=== PATIENT | female | born 1975 | race Asian ===

== ENCOUNTER 2022-02-21 16:30 | Inpatient (IN) | payer BC ==
[~2022-02-21] VITALS: Ht 160 cm; Wt 61.7 kg
[2022-02-21 17:13] LABS: EOSINOPHILS % 1.2 % (0.0-5.0); HEMATOCRIT. 39.3 % (36.0-48.0); HEMOGLOBIN. 12.3 g/dL (12.0-16.0); LYMPHOCYTES % 23.7 % (20.0-50.0); MEAN CORPUSCULAR HEMOGLOBIN 22.9 pg (28.0-32.0); MEAN CORPUSCULAR VOLUME 73.2 fL (81.0-99.0); MEAN PLATELET VOLUME 7.8 fl (7.4-10.4); MONOCYTES % 5.4 % (2.0-8.0); NEUTROPHILS % 68.7 % (40.0-76.0); PLATELET 372 x1000/uL (130-400); RED BLOOD CELL COUNT 5.37 mill/uL (4.2-5.4); RED CELL DISTRIBUTION WIDTH 17.9 % (11.6-14.6)
[2022-02-21 17:19] LABS: CHLORIDE 103 mEq/L (98-107)
[2022-02-21 17:43] LABS: HCG SCREEN NEGATIVE
[2022-02-21 18:03] LABS: INR 0.9; PARTIAL THROMBOPLASTIN TIME 25.1 sec (23.4-31.0); PROTHROMBIN TIME 9.9 sec (9.6-11.0)
[2022-02-21] MEDS ORDERED: HEPARIN 25,000 UNITS PREMIX 250 ML IV ONE (18:45)
[2022-02-21] MEDS ORDERED: HEPARIN 80 UNITS/KG BOLUS IV NR (19:00)
[2022-02-21] MEDS ORDERED: HEPARIN 25,000 UNITS PREMIX 250 ML IV SCH ×2 (19:00→20:15)
[2022-02-21] MEDS ORDERED: ACETAMINOPHEN 325MG TABLET PO PRN ×2 (20:00)
[2022-02-21] MEDS ORDERED: SODIUM CHLORIDE 0.9% 1,000 ML IV SCH (20:00)
[2022-02-21] MEDS ORDERED: MORPHINE SULFATE 2 MG/ML CPJ (NOT FOR IM USE) IV PRN (20:00)
[2022-02-21] MEDS ORDERED: MAGNESIUM/ALUMINUM HYDROXIDE/SIMETHICONE 30ML UDC PO PRN (20:00)
[2022-02-21] MEDS ORDERED: DIPHENHYDRAMINE 50MG/ML VIAL IV PRN (20:00)
[2022-02-21] MEDS ORDERED: CLONIDINE 0.1MG TABLET PO PRN (20:00)
[2022-02-21] MEDS ORDERED: ONDANSETRON HCL 4MG/2ML INJ IV PRN (20:00)
[2022-02-21] MEDS ORDERED: HYDRALAZINE 20MG/ML VIAL IV PRN (20:00)
[2022-02-21] MEDS ORDERED: ZOLPIDEM TARTRATE 5MG TABLET PO PRN (20:00)
[2022-02-21] MEDS: PANTOPRAZOLE 40MG DR TABLET PO SCH (21:40)
[2022-02-21] MEDS ORDERED: IOHEXOL-350 100 ML BOTTLE ONE (22:47)
[2022-02-21 23:48] VITALS: BP 120/86
[2022-02-22] VITALS: BP 119/82
[2022-02-22] MEDS ORDERED: HEPARIN BOLUS PRN aPTT <36 IV ×2 (01:00)
[2022-02-22] MEDS ORDERED: HEPARIN BOLUS PRN aPTT 37-44 IV ×2 (01:00)
[2022-02-22 04:00] VITALS: BP 96/65
[2022-02-22 08:00] VITALS: BP 99/64
[2022-02-22] MEDS: PANTOPRAZOLE 40MG DR TABLET PO SCH ×2 (08:11→20:32)
[2022-02-22 14:57] LABS: PROTHROMBIN TIME 10.8 sec (9.6-11.0)
[2022-02-22 15:09] LABS: CHLORIDE 107 mEq/L (98-107)
[2022-02-22 15:14] LABS: PHOSPHORUS 2.9 mg/dL (2.5-4.9)
[2022-02-22 16:00] VITALS: BP 109/50
[2022-02-22] MEDS ORDERED: NALOXONE HCL 0.4MG/ML VIAL IV PRN (17:00)
[2022-02-22] MEDS: APIXABAN 5 MG TABLET PO SCH (17:13)
[2022-02-22] MEDS ORDERED: MAGNESIUM 1 G PREMIX 100 ML IV NR (18:15)
[2022-02-22 20:00] VITALS: BP 105/71
[2022-02-22 21:05] LABS: BASOPHILS % 0.7 % (0.0-2.0); EOSINOPHILS % 2.4 % (0.0-5.0); HEMATOCRIT. 32.3 % (36.0-48.0); HEMOGLOBIN. 10.3 g/dL (12.0-16.0); MEAN CORPUSCULAR HEMOGLOBIN 23.1 pg (28.0-32.0); MEAN CORPUSCULAR VOLUME 72.4 fL (81.0-99.0); MEAN PLATELET VOLUME 7.8 fl (7.4-10.4); MONOCYTES % 6.7 % (2.0-8.0); NEUTROPHILS % 57.2 % (40.0-76.0); PLATELET 326 x1000/uL (130-400); RED BLOOD CELL COUNT 4.46 mill/uL (4.2-5.4); RED CELL DISTRIBUTION WIDTH 17.7 % (11.6-14.6)
[2022-02-23] VITALS: BP 112/77
[2022-02-23 04:00] VITALS: BP 106/64
[2022-02-23] MEDS: PANTOPRAZOLE 40MG DR TABLET PO SCH (07:40)
[2022-02-23 08:00] VITALS: BP 109/65
[2022-02-23] MEDS: APIXABAN 5 MG TABLET PO SCH (09:38)
[2022-02-23] MEDS ORDERED: APIX5TAB PO (11:41)
[2022-02-23 11:58] VITALS: BP 115/75
[2022-03-02] MEDS ORDERED: APIXABAN 5 MG TABLET PO SCH (09:00)
== END 2022-02-23 12:20 | disposition home or self-care (01) | DRG 176 ==
LOC: ER 16:30 → 7WST 18:39 → EDBEDREQ 18:41 → EDBEDREQTM 18:41 → ENRESERV 19:54
PROVIDERS: ADMIT Internal Medicine; ATTEND Internal Medicine
DX: I26.99 Other pulmonary embolism without acute cor pulmonale (principal); R65.10 Systemic inflammatory response syndrome (SIRS) of non-infectious origin without acute organ dysfunction; F17.200 Nicotine dependence, unspecified, uncomplicated; Z20.822 Contact with and (suspected) exposure to COVID-19; D72.829 Elevated white blood cell count, unspecified; E83.42 Hypomagnesemia; E78.00 Pure hypercholesterolemia, unspecified; Z91.018 Allergy to other foods; Z79.899 Other long term (current) drug therapy
CPT/HCPCS: 36415; 71045; 71275; 80048; 80053; 83735; 83880; 84100; 84484; 84703; 85025; 87426; 93005; 93306; 93970; 99285; J1644; J3475; Q9967